=== PATIENT | female | born 1985 | race African-American/Black ===

== ENCOUNTER 2018-09-08 07:28 | Emergency (ER) | payer MEDICAID, OTHER ==
[~2018-09-08] VITALS: Ht 170.2 cm; Wt 127.0 kg
[2018-09-08 08:02] VITALS: BP 121/82
[2018-09-08] MEDS ORDERED: KETOROLAC TROMETH 60MG/2ML VIAL IM ONE (08:45)
== END 2018-09-08 09:17 | disposition home or self-care (01) ==
LOC: ER 07:36
DX: M25.561 Pain in right knee (principal); M25.562 Pain in left knee; M79.641 Pain in right hand; M79.642 Pain in left hand
CPT/HCPCS: 96372; 99283; J1885

== ENCOUNTER 2019-02-11 07:16 | Emergency (ER) | payer MEDICAID ==
[~2019-02-11] VITALS: Ht 170.2 cm; Wt 127.0 kg
[2019-02-11 07:23] VITALS: BP 139/98
[2019-02-11] MEDS ORDERED: KETOROLAC TROMETH 60MG/2ML VIAL IM ONE (08:15)
== END 2019-02-11 08:36 | disposition home or self-care (01) ==
LOC: ER 07:21
DX: M23.92 Unspecified internal derangement of left knee (principal); Z98.51 Tubal ligation status
CPT/HCPCS: 96372; 99283; J1885